=== PATIENT | female | born 1970 | race Hispanic/Latino ===

== ENCOUNTER 2018-05-15 21:41 | Emergency (ER) | payer SELFPAY ==
[2018-05-15] MEDS ORDERED: Acetaminophen/Codeine 30-300mg Tablet ONE (21:56)
[2018-05-15] MEDS ORDERED: Clindamycin 150 MG CAP ONE (21:57)
== END 2018-05-15 22:05 | disposition home or self-care (01) ==
LOC: BURERS 21:41
DX: K04.7 Periapical abscess without sinus (principal); Z87.442 Personal history of urinary calculi
CPT/HCPCS: 99282

== ENCOUNTER 2022-01-10 20:54 | Emergency (ER) | payer SELFPAY ==
[2022-01-10] MEDS ORDERED: Dexamethasone 10 MG/ML VIAL ONE (21:39)
[2022-01-10] MEDS ORDERED: Morphine 4 MG/ML VIAL ONE (21:39)
== END 2022-01-10 22:25 | disposition home or self-care (01) ==
LOC: BURERS 20:54
DX: M54.12 Radiculopathy, cervical region (principal); Z87.442 Personal history of urinary calculi
CPT/HCPCS: 96372; 99283; J1100; J2270